=== PATIENT | male | born 2000 | race Caucasian/White ===

== ENCOUNTER 2021-01-09 21:49 | Emergency (ER) | payer MEDICAID ==
[~2021-01-09] VITALS: Ht 185.4 cm; Wt 77.1 kg
[2021-01-09] MEDS ORDERED: SODIUM CHLORIDE 0.9% 1,000 ML IV ONE (22:30)
[2021-01-09] MEDS ORDERED: ONDANSETRON HCL 4 MG/2 ML VIAL IV ONE (22:30)
[2021-01-10 00:05] LABS: Acetaminophen < 2.0 ug/mL (10-30); Albumin 4.6 g/dL (3.4-5.0); BUN/Creatinine Ratio 15.2; Bilirubin, Total 0.4 mg/dL (0.2-1.0); Hematocrit 48.1 % (41.0-53.0); Hemoglobin 16.1 g/dL (13.5-17.5); Mean Corpuscular Hemoglobin 29.9 pg (28.0-32.0); Mean Corpuscular Hgb Conc. 33.4 g/dL (32.0-36.0); Mean Corpuscular Volume 89.7 fL (80.0-100.0); Platelet Count (auto) 249 10^3/uL (140-450); Potassium 4.2 mmol/L (3.5-5.1); Red Blood Cells 5.36 10^6/uL (4.5-5.90); Salicylate < 1.7 mg/dL (2.8-20.0); Total Protein 7.9 g/dL (6.4-8.2); White Blood Cell 29.9 10^3/uL (4.4-10.8)
[2021-01-10 00:50] LABS: Basophils % (manual) 0 (0.0-2.0); Blast Cells 0; Eosinophils % (manual) 0 (0-7); Metamyelocytes % 0; Myelocytes % 0; Promyelocytes % 0; Reactive Lymphocytes 0
[2021-01-10 00:52] LABS: Band Neutrophils % (manual) 10; Lymphocytes % (manual) 3 (10.0-50.0); Monocytes % (manual) 7 (0-12)
[2021-01-10 03:46] LABS: Urine Bacteria FEW /hpf (None Seen); Urine Blood Negative /uL (Negative); Urine Hyaline Cast MOD /lpf (0 - 2); Urine Mucus FEW (None Seen); Urine Specific Gravity 1.027 (1.001-1.035); Urine WBC 20 /hpf (0 - 3)
[2021-01-10 03:51] LABS: Alcohol, Urine < 3.0 mg/dL (0-10); Barbiturate Scree,Urine NEGATIVE (NEGATIVE); Benzodiazephine Screen, Urine NEGATIVE (NEGATIVE); Cannabinoid Screen, Urine POSITIVE (NEGATIVE); Cocaine Screen, Urine NEGATIVE (NEGATIVE); Opiate Scree,Urine NEGATIVE (NEGATIVE); Phencyclidine Screen, Urine NEGATIVE (NEGATIVE)
[2021-01-10 03:59] LABS: Amphetamine Screen, Urine NEGATIVE (NEGATIVE)
[2021-01-10 04:07] VITALS: BP 131/86
== END 2021-01-10 04:04 | disposition home or self-care (01) ==
LOC: EDBD 21:49 → ER 21:53
DX: R40.0 Somnolence (principal)
CPT/HCPCS: 36415; 80053; 80307; 80329; 81001; 85007; 85027; 93005; 96361; 96374; 99284; J2405; J7030